=== PATIENT | male | born 1980 | race Caucasian/White ===

== ENCOUNTER → 2020-10-05 | Outpatient (CLI) | payer OTHER ==
--- NOTE | 2020-10-06 08:01 | US ---
EXAM DESCRIPTION: Abdomen,Complete: Ultrasound. CLINICAL HISTORY: 40 years Male gastro-esophageal reflux disease with esophagitis COMPARISON: None Available. TECHNIQUE: Transabdominal scanning: grayscale and Doppler modes.. Technically difficult study due to large patient body habitus. FINDINGS: Gallbladder: Surgically absent. No fluid in the gallbladder fossa. Abdominal wall Non-tender with transducer pressure. Common bile duct: caliber 6.0 mm physiologic diameter postcholecystectomy. Liver: Heterogeneously increased echogenicity; contour liver capsule smooth where seen. No fluid around the liver. Intrahepatic biliary ducts normal caliber. Doppler hepatopedal flow and normal caliber portal vein 12.2 mm.. Long axis right lobe 16.5 cm. Pancreas: normal size and echogenicity. Duct not seen. Complete abdominal aorta: Normal caliber from the proximal segment to the distal bifurcation.. IVC: visualized and normal caliber. Right kidney: long axis measures 11.0 cm; volume 234.2 mL.. Cortical echogenicity is normal.. Normal cortical thickness. No echogenic stones; no hydronephrosis. Left kidney: long axis measures 10.3 cm; volume 197.7 mL.. Cortical echogenicity is normal. Normal cortical thickness. No echogenic stones; no hydronephrosis. Spleen: Normal. No focal lesions.. 11.5 cm long axis. Other: None. IMPRESSION: 1. Steatosis of the liver and borderline enlargement. Physiologic vascularity index. Paracapsular no ascites. Pancreas is negative. 2. Prior cholecystectomy. No fluid in the gallbladder fossa. Common bile duct is normal caliber postcholecystectomy. 3. Bilateral kidneys are unremarkable. Normal size of the spleen. The abdominal aorta and IVC are not dilated. Electronically signed by: Immanuel Aguilar MD 10/06/2020 7:59 AM [facility]
== END ==
LOC: US 10:06
PROVIDERS: ATTEND Family Medicine
DX: K21.00 Gastro-esophageal reflux disease with esophagitis, without bleeding (principal); K76.0 Fatty (change of) liver, not elsewhere classified; Z90.49 Acquired absence of other specified parts of digestive tract